=== PATIENT | male | born 1980 | race Two or more races ===

== ENCOUNTER 2018-10-11 21:29 | Emergency (ER) | payer OTHER ==
[~2018-10-11] VITALS: Ht 170.2 cm; Wt 79.4 kg
--- NOTE | 2018-10-11 22:30 | NUR ---
GREYSESEBASTIÁN FROM HOME. TO ER BED 11. AAOX4. NO RESP DISTRESS NOTED, BREATHING EVEN AND UNLABORED. AMBULATORY. C/O DIFFICULTY BRAETHING AND SOB. UPON ASSESSMENT, NO NOTED SOB AND PT SATTING AT 100%/ PT ALSO REPORTS THE HE FELT TINGLING BEHIND HIS TONGUE, RESOLVED PHOTOLITHOGRAPHER. VSS ARE STABLE. AT BEDSIDE MARJORIE ZAPATA.
[2018-10-11 22:49] LABS: BASOPHILS % (AUTO) 0.5 % (0.0-2.0); EOSINOPHILS % (AUTO) 2.4 % (0.0-6.0); HEMATOCRIT 42 % (39-51); HEMOGLOBIN 14.3 g/dL (13.5-17.5); LYMPHOCYTES # (AUTO) 1.9 /CMM (0.8-4.8); LYMPHOCYTES % (AUTO) 27.3 % (20.0-44.0); MEAN CORPUSCULAR HGB CONC 34 g/dl (31.0-36.0); MEAN CORPUSCULAR VOLUME 90 fL (80-96); MONOCYTES # (AUTO) 0.5 /CMM (0.1-1.30); MONOCYTES % (AUTO) 7.2 % (2.0-12.0); NEUTROPHILS # (AUTO) 4.4 /CMM (1.8-8.9); NEUTROPHILS % (AUTO) 62.6 % (43.0-81.0); PLATELET COUNT (AUTO) 272 /CMM (150-450); RED BLOOD CELL COUNT(AUTO) 4.68 MIL/uL (4.5-6.0)
[2018-10-11 22:55] LABS: CALCIUM, SERUM 9.2 mg/dL (8.5-10.1); CREATININE 1.1 mg/dL (0.6-1.3); POTASSIUM 4.3 mmol/L (3.5-5.1)
--- NOTE | 2018-10-11 23:18 | NUR ---
Patient discharged to home in stable condition. Written and verbal after care instructions given. Patient verbalizes understanding of instruction. Pt ambulatory with a steady gait
[2018-10-11 23:19] VITALS: BP 136/80
== END 2018-10-11 23:19 | disposition home or self-care (01) ==
LOC: ER 21:43
DX: E86.0 Dehydration (principal); R42 Dizziness and giddiness
CPT/HCPCS: 36415; 80048-TC; 85025-TC

== ENCOUNTER 2022-06-09 19:49 | Emergency (ER) | payer OTHER ==
[~2022-06-09] VITALS: Ht 170.2 cm; Wt 77.1 kg
--- NOTE | 2022-06-09 20:39 | NUR ---
BIBS C/O LACERATION L CARLSON FROM [place] WHICH HAPPENNED YESTERDAY. TETANUS UTD. PT IS AAO X 4, BREATHING UNLABORED, STABLE ON ROOM AIR. HR IS 69. PT RATES PAIN AT 5/10. PT ATTACHED TO MONITOR AND PULSE OX. AWAITING MD ZAPATA.
[2022-06-09 20:40] VITALS: BP 137/88
[2022-06-09] MEDS ORDERED: GELATIN SPONGE,ABSORBABLE 1 SPONGE SPONGE TP ONE ×2 (20:55→21:00)
--- NOTE | 2022-06-09 21:03 | NUR ---
dr olivier at bedside
--- NOTE | 2022-06-09 21:33 | NUR ---
Patient discharged to home in stable condition. Written and verbal after care instructions given. Patient verbalizes understanding of instruction. Pt ambulatory with a steady gait
== END 2022-06-09 21:34 | disposition home or self-care (01) ==
LOC: ER 19:55
DX: S81.812A Laceration without foreign body, left lower leg, initial encounter (principal); W25.XXXA Contact with sharp glass, initial encounter; Y93.89 Activity, other specified; Y92.89 Other specified places as the place of occurrence of the external cause; Y99.8 Other external cause status
CPT/HCPCS: 99283; A6403